=== PATIENT | male | born 1990 | race Asian ===

== ENCOUNTER 2025-08-28 22:57 | Emergency (ER) | payer OTHER ==
[~2025-08-28] VITALS: Ht 170.2 cm; Wt 71.2 kg
[2025-08-28] MEDS ORDERED: IBUPROFEN 400 MG TABLET ONE (23:29)
[2025-08-28] MEDS: IBUPROFEN 400 MG TABLET PO ONE (23:32)
[2025-08-29] MEDS ORDERED: IBUP-1957 PO (00:02)
[2025-08-29 00:16] VITALS: BP 130/85; TEMP 98.5; O2SAT 99
== END 2025-08-29 00:18 | disposition home or self-care (01) ==
LOC: ER 23:03
DX: S22.32XA Fracture of one rib, left side, initial encounter for closed fracture (principal); S13.4XXA Sprain of ligaments of cervical spine, initial encounter; S40.012A Contusion of left shoulder, initial encounter; V89.2XXA Person injured in unspecified motor-vehicle accident, traffic, initial encounter; Y93.89 Activity, other specified; Y92.410 Unspecified street and highway as the place of occurrence of the external cause; Y99.8 Other external cause status
CPT/HCPCS: 71100-TC; 73030-TC